=== PATIENT | female | born 1995 | race Caucasian/White ===

== ENCOUNTER 2021-11-16 14:30 | Emergency (ER) | payer MEDICARE ==
[~2021-11-16] VITALS: Ht 149.9 cm; Wt 59.4 kg
== END 2021-11-16 14:57 | disposition home or self-care (01) ==
LOC: ER 14:43
DX: O42.913 Preterm premature rupture of membranes, unspecified as to length of time between rupture and onset of labor, third trimester (principal)
CPT/HCPCS: 99282